=== PATIENT | female | born 1970 | race Hispanic/Latino ===

== ENCOUNTER 2018-05-05 20:15 | Emergency (ER) | payer OTHER ==
[2018-05-05 20:36] VITALS: RESP 20
[2018-05-05] MEDS ORDERED: Sodium Chloride 0.9% 1,000 ML IV ONE (22:24)
[2018-05-05] MEDS ORDERED: Dexamethasone 4 mg/1 ml IVP STA (22:25)
[2018-05-05] MEDS ORDERED: Iodixanol 320 MG/ML 100 ML BOTTLE IV ONE (22:41)
[2018-05-05 22:55] LABS: BASO % 0.3 % (0.0-2.0); EOS # 0.1 K/uL (0.0-0.7); EOS % 0.9 % (0.0-4.0); HEMOGLOBIN 12.9 g/dL (11.0-16.0); LYMPH % 16.3 % (20.0-40.0); MEAN CELL VOLUME 92.9 fL (81.0-99.0); MEAN CORPUSCULAR HGB CONC 33.4 g/dL (33.0-37.0); MEAN PLATELET VOLUME 6.7 fL (7.2-11.7); MONO # 1.1 K/uL (0.0-0.8); MONO % 9.2 % (0.0-10.0); NEUT % 73.3 % (50.0-75.0); RBC 4.15 Mil/uL (3.80-5.20); RED CELL DISTRIBUTION WIDTH 14.2 % (11.5-14.5); WHITE BLOOD COUNT 12.2 K/uL (4.8-10.8)
[2018-05-05] MEDS ORDERED: Dexamethasone 4 mg/1 ml ONE (22:58)
[2018-05-05 23:02] LABS: SQUAMOUS EPITHIAL 11 /hpf (0-5); URINE BACTERIA FEW (<OCC); URINE BILIRUBIN NEGATIVE (NEGATIVE); URINE BLOOD NEGATIVE (NEGATIVE); URINE CLARITY Hazy (Clear); URINE COLOR Yellow (YELLOW); URINE GLUCOSE (UA) NORMAL (Normal); URINE LEUKOCYTE ESTERASE TRACE Leu/uL (Negative); URINE PROTEIN NEGATIVE (NEGATIVE); URINE UROBILINOGEN NORMAL mg/dL (0.2-1.0)
[2018-05-05 23:03] LABS: HCG,QUALITATIVE URINE NEGATIVE (NEGATIVE)
[2018-05-05 23:08] LABS: BARBITURATES, UR NEGATIVE (NEGATIVE); BENZODIAZEPINES, UR NEGATIVE (NEGATIVE); OPIATES, UR NEGATIVE (NEGATIVE); PHENCYCLIDINE, UR NEGATIVE (NEGATIVE)
[2018-05-05 23:08] LABS: ALB/GLOB RATIO 1.3 (1.0-2.1); ALBUMIN 4.2 g/dL (3.5-5.0); ALT/SGPT 26 U/L (9-52); AST/SGOT 30 U/L (14-36); BLOOD UREA NITROGEN 11 mg/dL (7-17); CALCIUM 8.9 mg/dl (8.6-10.4); GFR NON-AFRICAN AMERICAN > 60
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
[2018-05-06 01:12] VITALS: BP 113/76; PULSE 97; TEMP 97.6
[2018-05-06 01:32] VITALS: O2SAT 99
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
== END 2018-05-06 01:11 | disposition home or self-care (01) ==
LOC: C.ER 20:15
DX: S16.1XXA Strain of muscle, fascia and tendon at neck level, initial encounter (principal); S27.52XA Contusion of thoracic trachea, initial encounter; X58.XXXA Exposure to other specified factors, initial encounter
CPT/HCPCS: 70460; 70491; 80053; 80324; 80345; 80346; 80349; 80353; 80358; 80361; 81001; 83992; 84703; 85025; 96361; 96374; 99284; J1100; J7030; Q9967